=== PATIENT | male | born 1945 | race Asian ===

== ENCOUNTER 2023-02-17 18:45 | Emergency (ER) | payer OTHER ==
[~2023-02-17] VITALS: Ht 170.2 cm; Wt 63.5 kg
[2023-02-17 18:53] VITALS: O2SAT 99
[2023-02-17] MEDS ORDERED: ATORVASTATIN (18:53)
[2023-02-17] MEDS ORDERED: HYDROCHLOROTHIAZIDE (18:53)
[2023-02-17] MEDS ORDERED: TETANUS, DIPHTHERIA, PERTUSSIS VAC/PF 0.5ML (>10YR OLD) IM ONE (19:30)
[2023-02-17] MEDS ORDERED: IBUPROFEN 600MG TABLET PO ONE (20:15)
[2023-02-17] MEDS ORDERED: BACITRACIN ZINC OINT UDPKT TOP ONE (20:15)
[2023-02-17] MEDS ORDERED: LIDOCAINE HCL/EPINEPHRINE 1%-EPI 1:100,000 20 ML VIAL INFIL ONE (20:15)
[2023-02-17 21:04] VITALS: BP 145/90
[2023-02-17] MEDS ORDERED: GABAPENTIN 300MG CAPSULE PO SCH (21:15)
[2023-02-17] MEDS ORDERED: GABA-532 MT (22:30)
[2023-02-17] MEDS ORDERED: TOPUD MT (22:30)
[2023-02-17] MEDS ORDERED: CEPH500C2 MT (22:32)
[2023-02-17] MEDS ORDERED: BO1 TP (22:32)
[2023-02-17 23:22] VITALS: PULSE 84; RESP 14; TEMP 98.1
== END 2023-02-17 23:23 | disposition home or self-care (01) ==
LOC: ER 18:45
DX: S81.812A Laceration without foreign body, left lower leg, initial encounter (principal); S00.83XA Contusion of other part of head, initial encounter; S20.219A Contusion of unspecified front wall of thorax, initial encounter; E78.00 Pure hypercholesterolemia, unspecified; I10 Essential (primary) hypertension; W10.0XXA Fall (on)(from) escalator, initial encounter; Y93.89 Activity, other specified; Y92.89 Other specified places as the place of occurrence of the external cause; Y99.8 Other external cause status
CPT/HCPCS: 99285; 70450; 71046; 73560; 73590; 73610; 90715; 12004; 90471; J3490